=== PATIENT | female | born 1965 | race African-American/Black ===

== ENCOUNTER 2016-06-04 01:46 | Inpatient (IN) | payer MEDICAID ==
[2016-06-04] VITALS (8 sets, daily range): BP systolic 106–129; BP diastolic 56–90
[~2016-06-04] VITALS: Ht 165.1 cm; Wt 72.6 kg
[2016-06-04] MEDS ORDERED: LORazepam Inj 2mg/ml 1ml ONE (01:54)
[2016-06-04] MEDS ORDERED: LORazepam Inj 2mg/ml 1ml IM ONE (02:00)
[2016-06-04 02:31] LABS: BASOPHILS % (AUTO) 1.3 % (0.0-2.0); EOSINOPHILS % (AUTO) 1.6 % (0.0-3.0); LYMPHOCYTES % (AUTO) 35.2 % (20.0-45.0); MEAN CORPUSCULAR HEMOGLOBIN 36.1 PG (27.0-31.0); MEAN CORPUSCULAR HGB CONC 36.6 G/DL (32.0-36.0); MEAN CORPUSCULAR VOLUME 99 FL (80-99); MEAN PLATELET VOLUME 11.6 FL (6.5-10.1); MONOCYTES % (AUTO) 14.2 % (1.0-10.0); NEUTROPHILS % (AUTO) 47.7 % (45.0-75.0); PLATELET COUNT 254 K/UL (150-450); RED BLOOD COUNT 3.97 M/UL (4.20-5.40); WHITE BLOOD COUNT 13.1 K/UL (4.8-10.8)
[2016-06-04 02:45] LABS: TROPONIN I < 0.30 ng/mL (<=0.30)
[2016-06-04 02:49] LABS: ALANINE AMINOTRANSFERASE 18 U/L (3-33); ALBUMIN/GLOBULIN RATIO 0.8 (1.0-2.7); AMMONIA 154 umol/L (11-51); ANION GAP 27 (5-15); ASPARTATE AMINO TRANSFERASE 43 U/L (5-40); CALCIUM 10.2 mg/dL (8.6-10.2); CARBON DIOXIDE 23 mEQ/L (20-30); CHLORIDE 79 mEQ/L (98-107); CREATININE 4.4 mg/dL (0.5-0.9); GLOMERULAR FILTRATION RATE 12.7 mL/min (>60); HEMOLYSIS 4; POTASSIUM 3.2 mEQ/L (3.4-4.9); SODIUM 129 mEQ/L (135-145); TOTAL PROTEIN 9.7 g/dL (6.6-8.7)
[2016-06-04 02:52] LABS: REFLEX LACTIC ACID YES OR NO YES
[2016-06-04 02:59] LABS: CKMB < 1.5 ng/mL (< 3.8)
[2016-06-04] MEDS ORDERED: Haloperidol 5mg/ml Inj IM ONE (03:00)
[2016-06-04 03:09] LABS: BILIRUBIN,DIRECT 0.6 mg/dL (0.1-0.3)
[2016-06-04] MEDS ORDERED: Lactulose 20gm/30ml UDC ORAL ONE (03:15)
[2016-06-04 03:36] LABS: APPEARANCE,URINE CLEAR; KETONES,URINE NEGATIVE (NEGATIVE); LEUKOCYTE ESTERASE ,URINE 1+ (NEGATIVE); NITRITE,URINE NEGATIVE (NEGATIVE); PH,URINE 5 (4.5-8.0); PROTEIN,URINE 2+ (NEGATIVE); UROBILINOGEN,URINE NORMAL MG/DL (0.0-1.0)
[2016-06-04 03:57] LABS: RBC,URINE 0-2 /HPF (0 - 2); SQUAMOUS EPITHELIAL CELL,UR FEW /LPF (NONE/OCC); WBC,URINE 0-2 /HPF (0 - 2)
[2016-06-04] MEDS ORDERED: Lactulose 200 GM in Water Sterile For Irrig 1000ml 700 ML RECTAL ONE (04:30)
--- NOTE | 2016-06-04 04:30 | Emergency Room Report ---
History of Present Illness General Chief Complaint: Altered Level of Consciousness Source: Family Member, EMS Present Illness HPI 51-year-old female presents to ED for evaluation. Per EMS patient is altered x1 day. Screaming and agitated. Patient has history of liver disease. History of hepatic encephalopathy. Noncompliant with her medications as per . No reported fevers or chills. denies chest pain shortness of breath. No reported drug use. No other aggravating relieving factors. Denies any associated symptoms Allergies: Coded Allergies: No Known Allergies (Unverified , 06/04/16) Patient History Past Medical History: other - liver cancer Past Surgical History: none Pertinent Family History: none Social History: Denies: alcohol use, drug use, smoking Last Menstrual Period: UNK Now: No Immunizations: UTD Reviewed Nursing Documentation: PMH: Agreed, PSxH: Agreed Nursing Documentation-PMH Hx Cancer: Yes - LIVER CANCER Review of Systems All Other Systems: negative except mentioned in HPI Physical Exam Vital Signs Date Time Temp Pulse Resp B/P Pulse Ox O2 Delivery O2 Flow Rate FiO2 06/04/16 01:44 97.7 116 16 106/90 98 06/04/16 01:50 Room Air Sp02 EP Interpretation: reviewed, normal General Appearance: no apparent distress, non-toxic, other - agitated, disoriented Head: normocephalic Eyes: bilateral eye PERRL, bilateral eye normal inspection ENT: normal ENT inspection Neck: normal inspection Respiratory: chest non-tender, lungs clear, normal breath sounds, speaking full sentences Cardiovascular #1: regular rate, rhythm, no edema Gastrointestinal: normal bowel sounds, non tender, soft, non-distended, no guarding, no rebound Rectal: deferred Genitourinary: no CVA tenderness Musculoskeletal: normal inspection Neurologic: other - disoriented Psychiatric: other - disoriented Skin: normal inspection Lymphatic: normal inspection Medical Decision Making Diagnostic Impression: Primary Impression: Hepatic encephalopathy Additional Impression: ARF (acute renal failure) Qualified Codes: N17.9 - Acute kidney failure, unspecified ER Course Hospital Course 51-year-old female presents to ED with agitation and confusion. History of hepatic encephalopathy Differential diagnoses include: Pneumonia, UTI, sepsis, dehydration, SC/ unstable angina Clinical course Patient placed on stretcher. 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 Patient given his Haldol/Ativan for sedation After initial history and physical, I ordered labs, IV fluids, EKG, chest x-ray , blood cultures, UA. Labs - BUN/Cr elevated, noted leukocytosis, troponins negative, ammonia elevated , UA negative EKG - NSR, no acute proces CXR - no acute process lactulose given. Case discussed with Dr Patino and they agreed to admit patient to their service for further care and support I feel this is a highly complex case requiring extensive working including EKG/ Rhythm strip, Xray/CT/US, Blood/urine lab work, repeat exams while in ED, and administration of strong opiates/narcotics for pain control, admission to hospital or close patient follow up. Diagnosis - hepatic encephaloapthy, ARF Patient admitted to floor in serious condition Labs Test 06/04/16 02:10 06/04/16 02:30 White Blood Count 13.1 K/UL (4.8-10.8) Red Blood Count 3.97 M/UL (4.20-5.40) Hemoglobin 14.3 G/DL (12.0-16.0) Hematocrit 39.2 % (37.0-47.0) Mean Corpuscular Volume 99 FL (80-99) Mean Corpuscular Hemoglobin 36.1 PG (27.0-31.0) Mean Corpuscular Hemoglobin Concent 36.6 G/DL (32.0-36.0) Red Cell Distribution Width 11.0 % (11.6-14.8) Platelet Count 254 K/UL (150-450) Mean Platelet Volume 11.6 FL (6.5-10.1) Neutrophils (%) (Auto) 47.7 % (45.0-75.0) Lymphocytes (%) (Auto) 35.2 % (20.0-45.0) Monocytes (%) (Auto) 14.2 % (1.0-10.0) Eosinophils (%) (Auto) 1.6 % (0.0-3.0) Basophils (%) (Auto) 1.3 % (0.0-2.0) Sodium Level 129 mEQ/L (135-145) Potassium Level 3.2 mEQ/L (3.4-4.9) Chloride Level 79 mEQ/L (98-107) Carbon Dioxide Level 23 mEQ/L (20-30) Anion Gap 27 (5-15) Blood Urea Nitrogen 80 mg/dL (7-23) Creatinine 4.4 mg/dL (0.5-0.9) Estimat Glomerular Filtration Rate 12.7 mL/min (>60) Glucose Level 145 mg/dL (74-106) Lactic Acid Level 5.20 mmol/L (0.66-2.22) Calcium Level 10.2 mg/dL (8.6-10.2) Total Bilirubin 2.0 mg/dL (0.0-1.2) Direct Bilirubin 0.6 mg/dL (0.1-0.3) Aspartate Amino Transf (AST/SGOT) 43 U/L (5-40) Alanine Aminotransferase (ALT/SGPT) 18 U/L (3-33) Alkaline Phosphatase 98 U/L (35-104) Ammonia 154 umol/L (11-51) Total Creatine Kinase 32 U/L (26-140) Creatine Kinase MB < 1.5 ng/mL (< 3.8) Creatine Kinase MB Relative Index 4.6 Troponin I < 0.30 ng/mL (<=0.30) Total Protein 9.7 g/dL (6.6-8.7) Albumin 4.4 g/dL (3.5-5.2) Globulin 5.3 g/dL Albumin/Globulin Ratio 0.8 (1.0-2.7) Urine Color Yellow Urine Appearance Clear Urine pH 5 (4.5-8.0) Urine Specific [place] 1.015 (1.005-1.035) Urine Protein 2+ (NEGATIVE) Urine Glucose (UA) Negative (NEGATIVE) Urine Ketones Negative (NEGATIVE) Urine Occult Blood Negative (NEGATIVE) Urine Nitrite Negative (NEGATIVE) Urine Bilirubin Negative (NEGATIVE) Urine Urobilinogen Normal MG/DL (0.0-1.0) Urine Leukocyte Esterase 1+ (NEGATIVE) Urine RBC 0-2 /HPF (0 - 2) Urine WBC 0-2 /HPF (0 - 2) Urine Squamous Epithelial Cells Few /LPF (NONE/OCC) Urine Bacteria None /HPF (NONE) EKG Diagnostic Results Rate: normal Rhythm: NSR ST Segments: no acute changes ASA given to the pt in ED: No Rhythm Strip Diag. Results EP Interpretation: yes Rhythm: NSR, no PVC's, no ectopy Chest X-Ray Diagnostic Results EP Interpretation: Yes Findings: no consolidation, no effusion, no pneumothorax, no acute cardiopulmonary disease Number of Views: 1 Last Vital Signs Date Time Temp Pulse Resp B/P Pulse Ox O2 Delivery O2 Flow Rate FiO2 06/04/16 03:50 97.5 87 18 129/64 96 Room Air Status: improved Disposition: ADMITTED INPATIENT Condition: Serious Referrals: NOT CHOSEN RIC/,REFERRING (PCP) TG OSHEA M.D. Jun 04, 2016 04:30
[2016-06-04] MEDS ORDERED: LORazepam Inj 2mg/ml 1ml IV PRN ×3 (05:00→13:00)
[2016-06-04] MEDS ORDERED: Mylanta II UD 30ml ORAL PRN ×2 (05:00→17:00)
[2016-06-04] MEDS ORDERED: Miralax 17gm pkt ORAL PRN (05:00)
[2016-06-04] MEDS ORDERED: Morphine Sulfate 2mg/ml Inj IVP PRN ×2 (05:00→13:00)
[2016-06-04] MEDS ORDERED: Zolpidem 5mg tab ORAL PRN (05:00)
[2016-06-04] MEDS ORDERED: Lactulose 20gm/30ml UDC ONE ×2 (05:16→05:20)
[2016-06-04] MEDS ORDERED: Cefepime HCl 1 GM in D5W 55 ML IV SCH (06:00)
[2016-06-04] MEDS: Lactulose 20gm/30ml UDC ORAL SCH ×5 (06:30→21:12)
[2016-06-04] MEDS ORDERED: DOCUSATE SODIU100 M2 ORAL (07:09)
[2016-06-04] MEDS ORDERED: LACTULOSE20 GM/301 ORAL (07:18)
[2016-06-04] MEDS ORDERED: FUROSEMIDE40 MG ORAL (07:18)
[2016-06-04] MEDS ORDERED: METRONIDAZOLE500 MG ORAL (07:18)
[2016-06-04] MEDS ORDERED: Cefepime 500mg in D5W 55ml IVPB SCH (08:00)
--- NOTE | 2016-06-04 08:31 | Diagnostic Imaging Report ---
Indication: Chest pain Technique: Single portable AP view of the chest. Findings: Comparison: None. Optimal inspiration. Mild crowding of bronchovascular markings in both lung bases. Linear density right lung base. Aortic arch mildly calcified. The bones and extra pulmonary soft tissues, cardiomediastinal silhouette, pulmonary vasculature and parenchyma, and pleural surfaces are otherwise unremarkable. IMPRESSION: Pulmonary bibasal compressive changes Aortosclerosis Otherwise negative.
--- NOTE | 2016-06-04 09:04 | General Progress Note ---
Assessment/Plan Problem List: (1) Hepatic encephalopathy ICD Codes: K72.90 - Hepatic failure, unspecified without coma SNOMED: 02682903 (2) ARF (acute renal failure) ICD Codes: N17.9 - Acute kidney failure, unspecified SNOMED: 20728044 Qualifiers: Qualified Codes: N17.9 - Acute kidney failure, unspecified Assessment/Plan paracentesis xifaxan lactulose AFP 2 gm sodium diet may need albumin Subjective ROS Limited/Unobtainable: No Allergies: Coded Allergies: No Known Allergies (Unverified , 06/04/16) Objective Last 24 Hour Vital Signs Date Time Temp Pulse Resp B/P Pulse Ox O2 Delivery O2 Flow Rate FiO2 06/04/16 06:00 97.0 71 19 106/56 97 Room Air 06/04/16 05:50 98.0 85 19 122/57 97 Room Air 06/04/16 05:50 98.0 85 19 122/57 97 Room Air 06/04/16 03:50 97.5 87 18 129/64 96 Room Air 06/04/16 01:50 97.7 116 22 106/90 96 Room Air 06/04/16 01:44 97.7 116 16 106/90 98 Intake and Output 06/03/16 06/04/16 19:00 07:00 Intake Total 1000 ml Balance 1000 ml Intake IV Total 1000 ml # Voids 1 Laboratory Tests 06/04/16 02:10: White Blood Count 13.1H, Red Blood Count 3.97L, Hemoglobin 14.3, Hematocrit 39.2 , Mean Corpuscular Volume 99, Mean Corpuscular Hemoglobin 36.1H, Mean Corpuscular Hemoglobin Concent 36.6H, Red Cell Distribution Width 11.0L, Platelet Count 254, Mean Platelet Volume 11.6H, Neutrophils (%) (Auto) 47.7, Lymphocytes (%) (Auto) 35.2, Monocytes (%) (Auto) 14.2H, Eosinophils (%) (Auto) 1.6, Basophils (%) (Auto) 1.3, Sodium Level 129L, Potassium Level 3.2L, Chloride Level 79L, Carbon Dioxide Level 23, Anion Gap 27H, Blood Urea Nitrogen 80H, Creatinine 4.4H, Estimat Glomerular Filtration Rate 12.7, Glucose Level 145H, Lactic Acid Level 5.20H, Calcium Level 10.2, Total Bilirubin 2.0H, Direct Bilirubin 0.6H, Aspartate Amino Transf (AST/SGOT) 43H, Alanine Aminotransferase (ALT/SGPT) 18, Alkaline Phosphatase 98, Ammonia 154H, Total Creatine Kinase 32, Creatine Kinase MB < 1.5, Creatine Kinase MB Relative Index 4.6, Troponin I < 0.30, Total Protein 9.7H, Albumin 4.4, Globulin 5.3, Albumin/Globulin Ratio 0.8L 06/04/16 02:30: Urine Color Yellow, Urine Appearance Clear, Urine pH 5, Urine Specific [place] 1.015, Urine Protein 2+H, Urine Glucose (UA) Negative, Urine Ketones Negative, Urine Occult Blood Negative, Urine Nitrite Negative, Urine Bilirubin Negative, Urine Urobilinogen Normal, Urine Leukocyte Esterase 1+H, Urine RBC 0-2, Urine WBC 0-2, Urine Squamous Epithelial Cells Few, Urine Bacteria None 06/04/16 04:50: Lactic Acid Level 2.50H Height (Feet): 5 Height (Inches): 5.00 Weight (Pounds): 160 General Appearance: lethargic EENT: normal ENT inspection Neck: supple Cardiovascular: normal rate Respiratory/Chest: lungs clear Abdomen: soft, hypoactive bowel sounds, distended Extremities: non-tender CHANCE VERNON Jun 04, 2016 09:04
[2016-06-04] MEDS ORDERED: Sodium Chloride 550 ML IV ONE (09:15)
[2016-06-04] MEDS ORDERED: Rifaximin 550mg tab ORAL SCH (10:00)
[2016-06-04 10:55] LABS: APPEARANCE,URINE CLEAR; KETONES,URINE NEGATIVE (NEGATIVE); LEUKOCYTE ESTERASE ,URINE 1+ (NEGATIVE); NITRITE,URINE NEGATIVE (NEGATIVE); PH,URINE 7 (4.5-8.0); PROTEIN,URINE 1+ (NEGATIVE); UROBILINOGEN,URINE NORMAL MG/DL (0.0-1.0)
--- NOTE | 2016-06-04 10:59 | Cardiology Report ---
APPROVED REPORT EKG Measurement Heart [id number] Sinus tachycardia Cannot rule out Anterior infarct, age undetermined T wave abnormality, consider inferior ischemia Prolonged QT Abnormal ECG
[2016-06-04 11:10] LABS: BACTERIA,URINE FEW /HPF; SQUAMOUS EPITHELIAL CELL,UR FEW /LPF (NONE/OCC); WBC,URINE 0-2 /HPF (0 - 2)
[2016-06-04 11:12] LABS: YEAST,URINE FEW /HPF
--- NOTE | 2016-06-04 11:49 | History and Physical ---
History of Present Illness General Date patient seen: Jun 04, 2016 Reason for Hospitalization: Altered Level of Consciousness Present Illness HPI 51-year-old female wiht hx of hepatic encephalopathy, Noncompliant with her medications presents to ED with CC of altered x1 day. Screaming and agitated. No reported drug use. No other aggravating relieving factors. Denies any associated symptoms. Pt was hypotensive in the last few hours, therefore I transferred her to [facility]. Currently, she is obtunded and hypotensive. Allergies: Coded Allergies: No Known Allergies (Unverified , 06/04/16) Medication History Scheduled Docusate Sodium (Docusate Sodium), 100 MG ORAL TWICE A DAY, (Reported) Furosemide* (Lasix*), 40 MG ORAL TWICE A DAY, (Reported) Metronidazole* (Flagyl*), 500 MG ORAL THREE TIMES A DAY, (Reported) Miscellaneous Medications Lactulose (Lactulose*), 15 ML ORAL, (Reported) Patient History Healthcare decision maker Resuscitation status Full Code Advanced Directive on File Past Medical/Surgical History Past Medical/Surgical History: (1) Liver cirrhosis Review of Systems All Other Systems: negative except mentioned in HPI Physical Exam General Appearance: cachetic Lines, tubes and drains: peripheral, central line HEENT: normocephalic, anicteric Neck: non-tender, normal alignment Respiratory/Chest: chest wall non-tender, lungs clear Cardiovascular/Chest: normal peripheral pulses, normal rate Last 24 Hour Vital Signs Date Time Temp Pulse Resp B/P Pulse Ox O2 Delivery O2 Flow Rate FiO2 06/04/16 08:00 98.0 82 20 109/65 93 Room Air 06/04/16 06:00 97.0 71 19 106/56 97 Room Air 06/04/16 05:50 98.0 85 19 122/57 97 Room Air 06/04/16 05:50 98.0 85 19 122/57 97 Room Air 06/04/16 03:50 97.5 87 18 129/64 96 Room Air 06/04/16 01:50 97.7 116 22 106/90 96 Room Air 06/04/16 01:44 97.7 116 16 106/90 98 Intake and Output 06/03/16 06/04/16 19:00 07:00 Intake Total 1000 ml Balance 1000 ml IV Total 1000 ml # Voids 1 Laboratory Tests Test 06/04/16 02:10 06/04/16 02:30 06/04/16 04:50 06/04/16 10:35 White Blood Count 13.1 K/UL (4.8-10.8) H Red Blood Count 3.97 M/UL (4.20-5.40) L Hemoglobin 14.3 G/DL (12.0-16.0) Hematocrit 39.2 % (37.0-47.0) Mean Corpuscular Volume 99 FL (80-99) Mean Corpuscular Hemoglobin 36.1 PG (27.0-31.0) H Mean Corpuscular Hemoglobin Concent 36.6 G/DL (32.0-36.0) H Red Cell Distribution Width 11.0 % (11.6-14.8) L Platelet Count 254 K/UL (150-450) Mean Platelet Volume 11.6 FL (6.5-10.1) H Neutrophils (%) (Auto) 47.7 % (45.0-75.0) Lymphocytes (%) (Auto) 35.2 % (20.0-45.0) Monocytes (%) (Auto) 14.2 % (1.0-10.0) H Eosinophils (%) (Auto) 1.6 % (0.0-3.0) Basophils (%) (Auto) 1.3 % (0.0-2.0) Sodium Level 129 mEQ/L (135-145) L Potassium Level 3.2 mEQ/L (3.4-4.9) L Chloride Level 79 mEQ/L (98-107) L Carbon Dioxide Level 23 mEQ/L (20-30) Anion Gap 27 (5-15) H Blood Urea Nitrogen 80 mg/dL (7-23) H Creatinine 4.4 mg/dL (0.5-0.9) H Estimat Glomerular Filtration Rate 12.7 mL/min (>60) Glucose Level 145 mg/dL (74-106) H Lactic Acid Level 5.20 mmol/L (0.66-2.22) H 2.50 mmol/L (0.66-2.22) H Calcium Level 10.2 mg/dL (8.6-10.2) Total Bilirubin 2.0 mg/dL (0.0-1.2) H Direct Bilirubin 0.6 mg/dL (0.1-0.3) H Aspartate Amino Transf (AST/SGOT) 43 U/L (5-40) H Alanine Aminotransferase (ALT/SGPT) 18 U/L (3-33) Alkaline Phosphatase 98 U/L (35-104) Ammonia 154 umol/L (11-51) H Total Creatine Kinase 32 U/L (26-140) Creatine Kinase MB < 1.5 ng/mL (< 3.8) Creatine Kinase MB Relative Index 4.6 Troponin I < 0.30 ng/mL (<=0.30) Total Protein 9.7 g/dL (6.6-8.7) H Albumin 4.4 g/dL (3.5-5.2) Globulin 5.3 g/dL Albumin/Globulin Ratio 0.8 (1.0-2.7) L Urine Color Yellow Pale yellow Urine Appearance Clear Clear Urine pH 5 (4.5-8.0) 7 (4.5-8.0) Urine Specific [place] 1.015 (1.005-1.035) 1.005 (1.005-1.035) Urine Protein 2+ (NEGATIVE) H 1+ (NEGATIVE) H Urine Glucose (UA) Negative (NEGATIVE) Negative (NEGATIVE) Urine Ketones Negative (NEGATIVE) Negative (NEGATIVE) Urine Occult Blood Negative (NEGATIVE) 2+ (NEGATIVE) H Urine Nitrite Negative (NEGATIVE) Negative (NEGATIVE) Urine Bilirubin Negative (NEGATIVE) Negative (NEGATIVE) Urine Urobilinogen Normal MG/DL (0.0-1.0) Normal MG/DL (0.0-1.0) Urine Leukocyte Esterase 1+ (NEGATIVE) H 1+ (NEGATIVE) H Urine RBC 0-2 /HPF (0 - 2) 2-4 /HPF (0 - 2) H Urine WBC 0-2 /HPF (0 - 2) 0-2 /HPF (0 - 2) Urine Squamous Epithelial Cells Few /LPF (NONE/OCC) Few /LPF (NONE/OCC) Urine Bacteria None /HPF (NONE) Few /HPF (NONE) Urine Yeast Few /HPF (NONE) H Urine Eosinophils Pending Urine Osmolality Pending Urine Random Sodium 45 mmol/L Urine Random Chloride 31 mmol/L Urine Potassium Timed 17 mmol/L Height (Feet): 5 Height (Inches): 5.00 Weight (Pounds): 160 Medications Current Medications Medications (Trade) Dose Ordered Sig/Danielle Route PRN Reason Start Time Stop Time Status Last Admin Dose Admin Acetaminophen (Tylenol) 650 mg Q4H PRN ORAL fever 06/04/16 05:00 07/04/16 04:59 Al Hydroxide/Mg Hydroxide (Mylanta II) 30 ml Q6H PRN ORAL dyspepsia 06/04/16 05:00 07/04/16 04:59 Albumin Human (Albumisol) 50 ml @ 50 mls/hr Q1HR IV 06/04/16 11:00 06/04/16 12:59 06/04/16 10:44 Cefepime HCl/ Dextrose (Maxipime/D5W) 55 ml @ 110 mls/hr Q24H IVPB 06/04/16 08:00 06/11/16 07:59 06/04/16 09:46 Dextrose (Dextrose 50%) STAT PRN IV Hypoglycemia 06/04/16 05:00 07/04/16 04:59 Lactulose (Cephulac) 30 gm FOUR TIMES A DAY ORAL 06/04/16 13:00 07/04/16 12:59 UNV Lactulose 30 gm 30 gm EVERY 6 HOURS ORAL 06/04/16 06:00 07/04/16 05:59 Lorazepam (Ativan 2mg/ml 1ml) 0.5 mg Q4H PRN IV For Anxiety 06/04/16 05:00 06/11/16 04:59 Morphine Sulfate (Morphine Sulfate) 2 mg Q4H PRN IVP For Pain 06/04/16 05:00 06/11/16 04:59 Ondansetron HCl (Zofran) 4 mg Q6H PRN IVP Nausea & Vomiting 06/04/16 05:00 07/04/16 04:59 Polyethylene Glycol (Miralax) 17 gm HSPRN PRN ORAL Constipation 06/04/16 05:00 07/04/16 04:59 Potassium Chloride/Sodium Chloride (KCl/Sodium Chloride 1000ml bag) 1,005 ml @ 100 mls/hr Q10H3M IV 06/04/16 11:45 07/04/16 11:44 UNV Rifaximin 550 mg 550 mg EVERY 12 HOURS ORAL 06/04/16 10:00 06/11/16 09:59 Vancomycin HCl 1 ea 1 ea DAILY PRN MISC Per rx protocol 06/04/16 11:45 4/27/17 11:44 UNV Zolpidem Tartrate (Ambien) 5 mg HSPRN PRN ORAL Insomnia 06/04/16 05:00 07/04/16 04:59 Assessment/Plan Problem List: (1) Liver cirrhosis ICD Codes: K74.60 - Unspecified cirrhosis of liver SNOMED: 88329396 (2) ARF (acute renal failure) ICD Codes: N17.9 - Acute kidney failure, unspecified SNOMED: 99141213 Qualifiers: Qualified Codes: N17.9 - Acute kidney failure, unspecified (3) Hepatic encephalopathy ICD Codes: K72.90 - Hepatic failure, unspecified without coma SNOMED: 87286904 Assessment/Plan IV fluids lactulose f/u ammonia level GI evaluation renal US, nephrology evaluation urine electrolytes. JENNA JACKSON Jun 04, 2016 11:49
[2016-06-04 12:15] LABS: INR 1.2 (0.9-1.1); PROTHROMBIN TIME 12.1 SEC (9.30-11.50)
[2016-06-04 12:19] LABS: BASOPHILS % (AUTO) 1.2 % (0.0-2.0); EOSINOPHILS % (AUTO) 2.9 % (0.0-3.0); LYMPHOCYTES % (AUTO) 25.8 % (20.0-45.0); MEAN CORPUSCULAR HEMOGLOBIN 35.8 PG (27.0-31.0); MEAN CORPUSCULAR HGB CONC 35.6 G/DL (32.0-36.0); MEAN CORPUSCULAR VOLUME 100 FL (80-99); MONOCYTES % (AUTO) 15.4 % (1.0-10.0); NEUTROPHILS % (AUTO) 54.7 % (45.0-75.0); PLATELET COUNT 232 K/UL (150-450); RED BLOOD COUNT 3.89 M/UL (4.20-5.40); RED CELL DISTRIBUTION WIDTH 11.4 % (11.6-14.8); WHITE BLOOD COUNT 7.3 K/UL (4.8-10.8)
[2016-06-04 12:23] LABS: ALANINE AMINOTRANSFERASE 17 U/L (3-33); ALBUMIN/GLOBULIN RATIO 0.8 (1.0-2.7); ANION GAP 20 (5-15); ASPARTATE AMINO TRANSFERASE 46 U/L (5-40); CALCIUM 9.6 mg/dL (8.6-10.2); CARBON DIOXIDE 26 mEQ/L (20-30); CHLORIDE 90 mEQ/L (98-107); CREATININE 2.8 mg/dL (0.5-0.9); GLOMERULAR FILTRATION RATE 21.5 mL/min (>60); HEMOLYSIS 2; MAGNESIUM 2.4 mg/dL (1.7-2.5); PHOSPHORUS 3.7 mg/dL (2.5-4.8); POTASSIUM 2.8 mEQ/L (3.4-4.9); SODIUM 136 mEQ/L (135-145); TOTAL PROTEIN 8.4 g/dL (6.6-8.7); URIC ACID 16.8 mg/dL (3.0-7.5)
[2016-06-04] MEDS: D5NS 1,000 ML IV SCH (12:30)
[2016-06-04] MEDS ORDERED: D5NS 1,000 ML IV SCH (12:30)
[2016-06-04 12:40] LABS: BILIRUBIN,DIRECT 0.6 mg/dL (0.1-0.3)
--- NOTE | 2016-06-04 12:48 | Consultation ---
Consult Note Consult Note Date patient seen: Jun 04, 2016 Reason for Hospitalization: Altered Level of Consciousness 51-year-old female wiht hx of hepatic encephalopathy, Noncompliant with her medications presents to ED with CC of altered x1 day. Screaming and agitated. No reported drug use. No other aggravating relieving factors. Denies any associated symptoms. Pt was hypotensive in the last few hours, therefore I transferred her to [facility]. Currently, she is obtunded and hypotensive. Scheduled Docusate Sodium (Docusate Sodium), 100 MG ORAL TWICE A DAY, (Reported) Furosemide* (Lasix*), 40 MG ORAL TWICE A DAY, (Reported) Metronidazole* (Flagyl*), 500 MG ORAL THREE TIMES A DAY, (Reported) Miscellaneous Medications Lactulose (Lactulose*), 15 ML ORAL, (Reported) Assessment/Plan status; Renal failure acute vs chronic Liver Cirrhosis Encephalopathy Slow hydrate- monitor renal parameters and serum Amonia urine studies RUSS BELLA Jun 04, 2016 12:48
[2016-06-04] MEDS ORDERED: Potassium Chloride 10 MEQ in NS 1000ml 1,000 ML IV SCH ×4 (13:00)
[2016-06-04] MEDS ORDERED: Lactulose 20gm/30ml UDC ORAL SCH (13:00)
--- NOTE | 2016-06-04 17:34 | Diagnostic Imaging Report ---
Indications: Nasogastric tube placement Technique: Portal supine AP abdomen Findings: Comparison: None Nasogastric tube tip is closer the region of the gastric fundus. Intravascular stent projects to the right of the lower thoracic spine. T12 vertebral body demonstrates moderate compression fracture with height loss of 30-40%. Osteophytes at the margins of multiple disc spaces. Pelvis excluded from image. Visualized bowel gas pattern is unremarkable. IMPRESSION: Nasogastric tube in stomach Prior TIPS T12 vertebral body compression fracture, acuity indeterminate Degenerative spondylosis
[2016-06-04] MEDS ORDERED: Vancomycin 1250mg/D5W 275ml IVPB ONE ×2 (19:00)
[2016-06-04] MEDS: Rifaximin 550mg tab ORAL SCH (21:12)
[2016-06-05] VITALS: BP 124/90
[2016-06-05] MEDS: D5NS 1,000 ML IV SCH ×3 (01:50→17:15)
[2016-06-05 04:00] VITALS: BP 127/80
[2016-06-05] MEDS ORDERED: Miralax 17gm pkt ORAL PRN ×2 (05:00→21:00)
[2016-06-05] MEDS ORDERED: Zolpidem 5mg tab ORAL PRN ×2 (05:00→21:00)
[2016-06-05 05:36] LABS: EOSINOPHILS % (AUTO) 3.6 % (0.0-3.0); LYMPHOCYTES % (AUTO) 24.3 % (20.0-45.0); MEAN CORPUSCULAR HEMOGLOBIN 36.1 PG (27.0-31.0); MEAN CORPUSCULAR VOLUME 103 FL (80-99); MEAN PLATELET VOLUME 10.7 FL (6.5-10.1); NEUTROPHILS % (AUTO) 57.2 % (45.0-75.0); PLATELET COUNT 219 K/UL (150-450); RED BLOOD COUNT 3.99 M/UL (4.20-5.40); RED CELL DISTRIBUTION WIDTH 12.1 % (11.6-14.8); WHITE BLOOD COUNT 8.1 K/UL (4.8-10.8)
[2016-06-05 05:46] LABS: INR 1.2 (0.9-1.1); PROTHROMBIN TIME 12.3 SEC (9.30-11.50)
[2016-06-05 06:11] LABS: MAGNESIUM 2.3 mg/dL (1.7-2.5); PHOSPHORUS 2.5 mg/dL (2.5-4.8)
[2016-06-05 06:23] LABS: ALBUMIN/GLOBULIN RATIO 0.9 (1.0-2.7); CALCIUM 10.2 mg/dL (8.6-10.2); CHOLESTEROL/HDL RATIO 14.9 (3.3-4.4); CREATININE 1.7 mg/dL (0.5-0.9); GLOMERULAR FILTRATION RATE 38.2 mL/min (>60); POTASSIUM 3.1 mEQ/L (3.4-4.9); TOTAL PROTEIN 8.9 g/dL (6.6-8.7)
[2016-06-05 06:34] LABS: THYROID STIMULATING HORMONE 3.2 uIU/mL (0.300-4.500)
[2016-06-05 07:07] LABS: BILIRUBIN,DIRECT 0.5 mg/dL (0.1-0.3)
[2016-06-05 08:00] VITALS: BP 126/75
[2016-06-05] MEDS ORDERED: Cefepime HCl 500 MG in D5W 55 ML IVPB SCH (08:00)
[2016-06-05 08:11] LABS: CORTISOL LC 29.7 ug/dL (.)
[2016-06-05] MEDS: Lactulose 20gm/30ml UDC ORAL SCH ×4 (08:48→21:37)
[2016-06-05] MEDS: Rifaximin 550mg tab ORAL SCH ×2 (08:49→21:37)
[2016-06-05] MEDS ORDERED: Pantoprazole Inj IVP SCH (09:00)
[2016-06-05] MEDS ORDERED: Potassium Chloride 40 MEQ in D5W 500ml 550 ML IV ONE (11:00)
--- NOTE | 2016-06-05 11:05 | Diagnostic Imaging Report ---
Indication: Abdominal distention, elevated bilirubin, and liver enzymes, abnormal renal function test Technique: Munoz-scale and duplex images of the upper abdomen were obtained Comparison: None Findings: There is a small moderate amount of ascites fluid present. Gallbladder demonstrates sludge, no definite stones. No gallbladder wall thickening.. . Common bile duct measures 4 mm in diameter. No intrahepatic biliary ductal dilatation. Liver demonstrates coarsened echogenicity and surface micro-nodularity. No focal abnormality. There is a right portal vein the right hepatic vein and TIPS shunt noted. This appears to be patent. Reversed left portal venous flow is demonstrated. Portal vein and hepatic veins are patent.. Pancreas is unremarkable. Spleen is normal in size.. Left kidney measures 10.5 cm in length. Right kidney measures 9.3 cm length. Both kidneys demonstrate normal echogenicity. There is no hydronephrosis. No focal abnormality. . Abdominal aorta is partially obscured by bowel gas, visualized portions are non-aneurysmal. Bladder is empty, contains a Rm catheter Impression: Evidence of hepatic cirrhosis, with coarse liver echogenicity and surface micro-nodularity Evidence of patent TIPS shunt Small to moderate amount of ascites fluid, despite the presence of the above Reversed flow in the left portal vein, presumably related to portal hypertension Gallbladder sludge. Negative for gallstones or dilated ducts Note incomplete visualization of the abdominal aorta. Empty bladder with Rm catheter
--- NOTE | 2016-06-05 11:27 | Pulmonology Progress Note ---
Assessment/Plan Problems: (1) Liver cirrhosis (2) ARF (acute renal failure) (3) Hepatic encephalopathy Assessment/Plan improving waking up swallow study continue IV fluids Subjective ROS Limited/Unobtainable: No Interval Events: more awake, responds to questions Allergies: Coded Allergies: No Known Allergies (Unverified , 06/04/16) Objective Last 24 Hour Vital Signs Date Time Temp Pulse Resp B/P Pulse Ox O2 Delivery O2 Flow Rate FiO2 06/05/16 08:00 97.3 63 19 126/75 94 Room Air 06/05/16 04:00 76 06/05/16 04:00 97.1 69 18 127/80 95 Room Air 06/05/16 00:00 82 06/05/16 00:00 97.2 81 18 124/90 96 Room Air 06/04/16 20:00 74 06/04/16 20:00 97.8 77 16 116/78 94 Room Air 06/04/16 16:00 82 06/04/16 16:00 97.7 77 16 118/67 95 Room Air 06/04/16 11:30 98.1 80 20 117/61 95 Room Air 06/04/16 11:30 81 Intake and Output 06/04/16 06/05/16 19:00 07:00 Intake Total 1230 ml 1100 ml Output Total 600 ml 1250 ml Balance 630 ml -150 ml Intake Oral 0 ml 0 ml Free Water 50 ml 100 ml IV Total 1180 ml 1000 ml Output Urine Total 600 ml 1250 ml # Bowel Movements 1 4 General Appearance: WD/WN HEENT: normocephalic, atraumatic Respiratory/Chest: chest wall non-tender, lungs clear Cardiovascular: normal peripheral pulses, normal rate Abdomen: normal bowel sounds, soft, non tender Extremities: no cyanosis, no clubbing Skin: no rash Microbiology Date/Time Source Procedure Growth Status 06/04/16 02:20 Blood Blood Culture - Preliminary Resulted 06/04/16 02:10 Blood Blood Culture - Preliminary NO GROWTH AFTER 24 HOURS Resulted 06/04/16 10:35 Urine,Clean Catch Urine Culture - Preliminary Resulted Laboratory Tests 06/04/16 11:35: White Blood Count 7.3, Red Blood Count 3.89L, Hemoglobin 13.9, Hematocrit 39.1, Mean Corpuscular Volume 100H, Mean Corpuscular Hemoglobin 35.8H, Mean Corpuscular Hemoglobin Concent 35.6, Red Cell Distribution Width 11.4L, Platelet Count 232, Mean Platelet Volume 12.0H, Neutrophils (%) (Auto) 54.7, Lymphocytes (%) (Auto) 25.8, Monocytes (%) (Auto) 15.4H, Eosinophils (%) (Auto) 2.9, Basophils (%) (Auto) 1.2, Prothrombin Time 12.1H, Prothromb Time International Ratio 1.2H, Activated Partial Thromboplast Time 28, Sodium Level 136, Potassium Level 2.8L, Chloride Level 90L, Carbon Dioxide Level 26, Anion Gap 20H, Blood Urea Nitrogen 65H, Creatinine 2.8H, Estimat Glomerular Filtration Rate 21.5, Glucose Level 107H, Plasma/Serum Osmolality [Pending], Lactic Acid Level 1.90, Uric Acid 16.8H, Calcium Level 9.6, Phosphorus Level 3.7 , Magnesium Level 2.4, Total Bilirubin 2.0H, Direct Bilirubin 0.6H, Aspartate Amino Transf (AST/SGOT) 46H, Alanine Aminotransferase (ALT/SGPT) 17, Alkaline Phosphatase 88, Ammonia 124H, Total Creatine Kinase 272H, Total Protein 8.4, Albumin 3.9, Globulin 4.5, Albumin/Globulin Ratio 0.8L, Thyroid Stimulating Hormone (TSH) 3.420, Free Thyroxine 1.70, Cortisol 29.7 06/05/16 03:50: White Blood Count 8.1, Red Blood Count 3.99L, Hemoglobin 14.4, Hematocrit 41.1, Mean Corpuscular Volume 103H, Mean Corpuscular Hemoglobin 36.1H, Mean Corpuscular Hemoglobin Concent 35.0, Red Cell Distribution Width 12.1, Platelet Count 219, Mean Platelet Volume 10.7H, Neutrophils (%) (Auto) 57.2, Lymphocytes (%) (Auto) 24.3, Monocytes (%) (Auto) 13.0H, Eosinophils (%) (Auto) 3.6H, Basophils (%) (Auto) 2.0, Prothrombin Time 12.3H, Prothromb Time International Ratio 1.2H, Activated Partial Thromboplast Time 29, Sodium Level 137, Potassium Level 3.1L, Chloride Level 93L, Carbon Dioxide Level 24, Anion Gap 20H, Blood Urea Nitrogen 43H, Creatinine 1.7H, Estimat Glomerular Filtration Rate 38.2, Glucose Level 109H, Calcium Level 10.2, Phosphorus Level 2.5, Magnesium Level 2.3, Total Bilirubin 1.9H, Direct Bilirubin 0.5H, Aspartate Amino Transf (AST/ SGOT) 60H, Alanine Aminotransferase (ALT/SGPT) 21, Alkaline Phosphatase 86, Ammonia 124H, Total Protein 8.9H, Albumin 4.3, Globulin 4.6, Albumin/Globulin Ratio 0.9L, Thyroid Stimulating Hormone (TSH) 3.200, Triglycerides Level 281H, Cholesterol Level 253H, LDL Cholesterol 180H, HDL Cholesterol 17, Cholesterol/ HDL Ratio 14.9H, Alpha Fetoprotein [Pending], Hepatitis A IgM Antibody [Pending] , Hepatitis B Surface Antigen [Pending], Hepatitis B Core IgM Antibody [Pending] , Hepatitis C Antibody [Pending] 06/05/16 04:00: Urine Eosinophils None seen Current Medications Medications (Trade) Dose Ordered Sig/Danielle Route PRN Reason Start Time Stop Time Status Last Admin Dose Admin Acetaminophen (Tylenol) 650 mg Q4H PRN ORAL fever 06/04/16 13:00 07/04/16 12:59 Cefepime HCl 500 mg/Sodium Chloride 55 ml @ 110 mls/hr Q24H IVPB 06/06/16 08:00 06/12/16 07:59 Dextrose (Dextrose 50%) STAT PRN IV Hypoglycemia 06/05/16 05:00 07/05/16 04:59 Dextrose/Sodium Chloride (D5ns) 1,000 ml @ 75 mls/hr [id number] IV 06/04/16 12:30 07/04/16 12:29 06/05/16 04:20 Lactulose (Cephulac) 30 gm FOUR TIMES A DAY ORAL 06/04/16 13:00 07/04/16 12:59 06/05/16 08:48 Lorazepam (Ativan 2mg/ml 1ml) 0.5 mg Q4H PRN IV For Anxiety 06/04/16 13:00 06/11/16 12:59 06/04/16 14:57 Morphine Sulfate (Morphine Sulfate) 2 mg Q4H PRN IVP For Pain 06/04/16 13:00 06/11/16 12:59 Ondansetron HCl (Zofran) 4 mg Q6H PRN IVP Nausea & Vomiting 06/04/16 17:00 07/04/16 16:59 06/04/16 14:57 Pantoprazole 40 mg 40 mg DAILY IVP 06/05/16 09:00 07/05/16 08:59 06/05/16 08:50 Polyethylene Glycol (Miralax) 17 gm HSPRN PRN ORAL Constipation 06/05/16 05:00 07/05/16 04:59 Potassium Chloride/Dextrose (KCl/D5W 500ml) 570 ml @ 142.5 mls/ hr ONCE ONCE IV 06/05/16 11:00 06/05/16 14:59 06/05/16 11:05 Rifaximin (Xifaxan) 550 mg EVERY 12 HOURS ORAL 06/04/16 21:00 06/11/16 20:59 06/05/16 08:49 Vancomycin HCl (Vanco rx to dose) 1 ea DAILY PRN MISC Per rx protocol 06/05/16 09:00 07/05/16 08:59 Zolpidem Tartrate (Ambien) 5 mg HSPRN PRN ORAL Insomnia 06/05/16 05:00 07/05/16 04:59 JENNA JACKSON Jun 05, 2016 11:27
--- NOTE | 2016-06-05 11:38 | General Progress Note ---
Assessment/Plan Problem List: (1) Hepatic encephalopathy ICD Codes: K72.90 - Hepatic failure, unspecified without coma SNOMED: 21880453 (2) ARF (acute renal failure) ICD Codes: N17.9 - Acute kidney failure, unspecified SNOMED: 51137577 Qualifiers: Qualified Codes: N17.9 - Acute kidney failure, unspecified (3) Cirrhosis ICD Codes: K74.60 - Unspecified cirrhosis of liver SNOMED: 34658974 (4) post tips Assessment/Plan xifaxan lactulose AFP 2 gm sodium diet fu labs fu hepatitis panel Subjective ROS Limited/Unobtainable: Yes Allergies: Coded Allergies: No Known Allergies (Unverified , 06/04/16) All Systems: reviewed and negative except above Objective Last 24 Hour Vital Signs Date Time Temp Pulse Resp B/P Pulse Ox O2 Delivery O2 Flow Rate FiO2 06/05/16 08:00 97.3 63 19 126/75 94 Room Air 06/05/16 04:00 76 06/05/16 04:00 97.1 69 18 127/80 95 Room Air 06/05/16 00:00 82 06/05/16 00:00 97.2 81 18 124/90 96 Room Air 06/04/16 20:00 74 06/04/16 20:00 97.8 77 16 116/78 94 Room Air 06/04/16 16:00 82 06/04/16 16:00 97.7 77 16 118/67 95 Room Air Intake and Output 06/04/16 06/05/16 19:00 07:00 Intake Total 1230 ml 1100 ml Output Total 600 ml 1250 ml Balance 630 ml -150 ml Intake Oral 0 ml 0 ml Free Water 50 ml 100 ml IV Total 1180 ml 1000 ml Output Urine Total 600 ml 1250 ml # Bowel Movements 1 4 Laboratory Tests 06/05/16 03:50: White Blood Count 8.1, Red Blood Count 3.99L, Hemoglobin 14.4, Hematocrit 41.1, Mean Corpuscular Volume 103H, Mean Corpuscular Hemoglobin 36.1H, Mean Corpuscular Hemoglobin Concent 35.0, Red Cell Distribution Width 12.1, Platelet Count 219, Mean Platelet Volume 10.7H, Neutrophils (%) (Auto) 57.2, Lymphocytes (%) (Auto) 24.3, Monocytes (%) (Auto) 13.0H, Eosinophils (%) (Auto) 3.6H, Basophils (%) (Auto) 2.0, Prothrombin Time 12.3H, Prothromb Time International Ratio 1.2H, Activated Partial Thromboplast Time 29, Sodium Level 137, Potassium Level 3.1L, Chloride Level 93L, Carbon Dioxide Level 24, Anion Gap 20H, Blood Urea Nitrogen 43H, Creatinine 1.7H, Estimat Glomerular Filtration Rate 38.2, Glucose Level 109H, Calcium Level 10.2, Phosphorus Level 2.5, Magnesium Level 2.3, Total Bilirubin 1.9H, Direct Bilirubin 0.5H, Aspartate Amino Transf (AST/ SGOT) 60H, Alanine Aminotransferase (ALT/SGPT) 21, Alkaline Phosphatase 86, Ammonia 124H, Total Protein 8.9H, Albumin 4.3, Globulin 4.6, Albumin/Globulin Ratio 0.9L, Triglycerides Level 281H, Cholesterol Level 253H, LDL Cholesterol 180H, HDL Cholesterol 17, Cholesterol/HDL Ratio 14.9H, Alpha Fetoprotein [ Pending], Thyroid Stimulating Hormone (TSH) 3.200, Hepatitis A IgM Antibody [ Pending], Hepatitis B Surface Antigen [Pending], Hepatitis B Core IgM Antibody [ Pending], Hepatitis C Antibody [Pending] 06/05/16 04:00: Urine Eosinophils None seen Height (Feet): 5 Height (Inches): 5.00 Weight (Pounds): 160 General Appearance: no apparent distress EENT: normal ENT inspection Neck: supple Cardiovascular: normal rate Respiratory/Chest: lungs clear Abdomen: soft, hypoactive bowel sounds, distended Extremities: non-tender CHANCE VERNON Jun 05, 2016 11:38
[2016-06-05 12:00] VITALS: BP 118/74
--- NOTE | 2016-06-05 12:02 | Diagnostic Imaging Report ---
Indication: DYSPNEA Technique: One view of the chest Comparison: 06/04/2016 Findings: Interim nasogastric intubation, nasogastric tube tip coiled in gastric body. Lung and pleural spaces are clear. Heart size is normal Impression: No acute process Satisfactory nasogastric intubation
--- NOTE | 2016-06-05 13:49 | General Progress Note ---
Assessment/Plan Status: stable Status Narrative renal parameters improved Assessment/Plan Renal failure acute vs chronic Liver Cirrhosis Encephalopathy Slow hydrate- monitor renal parameters and serum Amonia urine studies Subjective ROS Limited/Unobtainable: No Constitutional: Reports: malaise, weakness Allergies: Coded Allergies: No Known Allergies (Unverified , 06/04/16) Objective Last 24 Hour Vital Signs Date Time Temp Pulse Resp B/P Pulse Ox O2 Delivery O2 Flow Rate FiO2 06/05/16 12:00 96.8 73 21 118/74 94 Room Air 06/05/16 08:00 66 06/05/16 08:00 97.3 63 19 126/75 94 Room Air 06/05/16 04:00 76 06/05/16 04:00 97.1 69 18 127/80 95 Room Air 06/05/16 00:00 82 06/05/16 00:00 97.2 81 18 124/90 96 Room Air 06/04/16 20:00 74 06/04/16 20:00 97.8 77 16 116/78 94 Room Air 06/04/16 16:00 82 06/04/16 16:00 97.7 77 16 118/67 95 Room Air Intake and Output 06/04/16 06/05/16 19:00 07:00 Intake Total 1230 ml 1100 ml Output Total 600 ml 1250 ml Balance 630 ml -150 ml Intake Oral 0 ml 0 ml Free Water 50 ml 100 ml IV Total 1180 ml 1000 ml Output Urine Total 600 ml 1250 ml # Bowel Movements 1 4 Laboratory Tests 06/05/16 03:50: White Blood Count 8.1, Red Blood Count 3.99L, Hemoglobin 14.4, Hematocrit 41.1, Mean Corpuscular Volume 103H, Mean Corpuscular Hemoglobin 36.1H, Mean Corpuscular Hemoglobin Concent 35.0, Red Cell Distribution Width 12.1, Platelet Count 219, Mean Platelet Volume 10.7H, Neutrophils (%) (Auto) 57.2, Lymphocytes (%) (Auto) 24.3, Monocytes (%) (Auto) 13.0H, Eosinophils (%) (Auto) 3.6H, Basophils (%) (Auto) 2.0, Prothrombin Time 12.3H, Prothromb Time International Ratio 1.2H, Activated Partial Thromboplast Time 29, Sodium Level 137, Potassium Level 3.1L, Chloride Level 93L, Carbon Dioxide Level 24, Anion Gap 20H, Blood Urea Nitrogen 43H, Creatinine 1.7H, Estimat Glomerular Filtration Rate 38.2, Glucose Level 109H, Calcium Level 10.2, Phosphorus Level 2.5, Magnesium Level 2.3, Total Bilirubin 1.9H, Direct Bilirubin 0.5H, Aspartate Amino Transf (AST/ SGOT) 60H, Alanine Aminotransferase (ALT/SGPT) 21, Alkaline Phosphatase 86, Ammonia 124H, Total Protein 8.9H, Albumin 4.3, Globulin 4.6, Albumin/Globulin Ratio 0.9L, Triglycerides Level 281H, Cholesterol Level 253H, LDL Cholesterol 180H, HDL Cholesterol 17, Cholesterol/HDL Ratio 14.9H, Alpha Fetoprotein [ Pending], Thyroid Stimulating Hormone (TSH) 3.200, Hepatitis A IgM Antibody [ Pending], Hepatitis B Surface Antigen [Pending], Hepatitis B Core IgM Antibody [ Pending], Hepatitis C Antibody [Pending] 06/05/16 04:00: Urine Eosinophils None seen Height (Feet): 5 Height (Inches): 5.00 Weight (Pounds): 160 General Appearance: confused Cardiovascular: normal rate Respiratory/Chest: decreased breath sounds Abdomen: soft RUSS BELLA Jun 05, 2016 13:48
[2016-06-05] MEDS ORDERED: Morphine Sulfate 2mg/ml Inj IVP PRN (15:00)
[2016-06-05] MEDS ORDERED: LORazepam Inj 2mg/ml 1ml IV PRN (15:00)
[2016-06-05 16:12] VITALS: BP 122/73
[2016-06-05 20:30] VITALS: BP 118/68
[2016-06-05] MEDS ORDERED: Tubing IV Secondary IV ONE (20:34)
[2016-06-05] MEDS ORDERED: NS 275ml ONE (20:34)
[2016-06-05] MEDS ORDERED: Vancomycin 750mg/D5W 275ml IVPB ONE ×2 (21:00)
[2016-06-06 00:22] VITALS: BP 124/77
[2016-06-06 04:00] VITALS: BP 115/64
[2016-06-06] MEDS: D5NS 1,000 ML IV SCH (05:12)
[2016-06-06 07:29] LABS: INR 1.3 (0.9-1.1)
[2016-06-06 07:30] LABS: BASOPHILS % (AUTO) 1.9 % (0.0-2.0); EOSINOPHILS % (AUTO) 6.7 % (0.0-3.0); LYMPHOCYTES % (AUTO) 36.2 % (20.0-45.0); MEAN CORPUSCULAR HEMOGLOBIN 36.3 PG (27.0-31.0); MEAN CORPUSCULAR HGB CONC 34.7 G/DL (32.0-36.0); MEAN CORPUSCULAR VOLUME 105 FL (80-99); MONOCYTES % (AUTO) 16.5 % (1.0-10.0); NEUTROPHILS % (AUTO) 38.7 % (45.0-75.0); PLATELET COUNT 201 K/UL (150-450); RED BLOOD COUNT 3.68 M/UL (4.20-5.40); RED CELL DISTRIBUTION WIDTH 12.1 % (11.6-14.8); WHITE BLOOD COUNT 6.5 K/UL (4.8-10.8)
[2016-06-06 07:46] LABS: ALANINE AMINOTRANSFERASE 19 U/L (3-33); ALBUMIN/GLOBULIN RATIO 0.8 (1.0-2.7); ANION GAP 18 (5-15); ASPARTATE AMINO TRANSFERASE 49 U/L (5-40); CALCIUM 9.3 mg/dL (8.6-10.2); CARBON DIOXIDE 21 mEQ/L (20-30); CHLORIDE 100 mEQ/L (98-107); GLOMERULAR FILTRATION RATE > 60 mL/min (>60); HEMOLYSIS 5; MAGNESIUM 1.6 mg/dL (1.7-2.5); POTASSIUM 3.4 mEQ/L (3.4-4.9); SODIUM 139 mEQ/L (135-145); TOTAL PROTEIN 7.9 g/dL (6.6-8.7)
[2016-06-06] MEDS ORDERED: Cefepime HCl 500 MG in NS 55 ML IVPB SCH ×4 (08:00)
[2016-06-06] MEDS ORDERED: Cefepime HCl 1 GM in NS 55 ML IVPB SCH (08:00)
[2016-06-06 08:01] LABS: BILIRUBIN,DIRECT 0.4 mg/dL (0.1-0.3)
[2016-06-06 08:03] VITALS: BP 111/63
[2016-06-06] MEDS: Lactulose 20gm/30ml UDC ORAL SCH ×3 (08:29→18:36)
[2016-06-06] MEDS: Rifaximin 550mg tab ORAL SCH (08:29)
[2016-06-06] MEDS ORDERED: Pantoprazole Inj IVP SCH (09:00)
[2016-06-06] MEDS ORDERED: Potassium Chloride 40 MEQ in D5W 500ml 550 ML IV ONE (11:00)
[2016-06-06 12:00] VITALS: BP 112/71
[2016-06-06] MEDS ORDERED: D5NS 1,000 ML IV SCH (12:00)
--- NOTE | 2016-06-06 12:12 | General Progress Note ---
Assessment/Plan Status: stable Assessment/Plan Renal failure acute vs chronic Liver Cirrhosis Encephalopathy Slow hydrate- increase lactulose- K Phos IV now and as needed monitor renal parameters and serum Amonia urine studies Subjective ROS Limited/Unobtainable: No Constitutional: Reports: malaise Allergies: Coded Allergies: No Known Allergies (Unverified , 06/04/16) Objective Last 24 Hour Vital Signs Date Time Temp Pulse Resp B/P Pulse Ox O2 Delivery O2 Flow Rate FiO2 06/06/16 08:03 97.6 60 20 111/63 99 Room Air 06/06/16 04:00 98.1 66 20 115/64 100 Room Air 06/06/16 00:22 98.4 60 20 124/77 100 Room Air 06/05/16 20:30 98.1 65 19 118/68 100 Room Air 06/05/16 16:12 97.2 72 18 122/73 100 Room Air Intake and Output 06/05/16 06/06/16 19:00 07:00 Intake Total 75 ml 1025.000 ml Output Total 350 ml 653 ml Balance -275 ml 372.000 ml IV Total 75 ml 1025.000 ml Output Urine Total 350 ml 650 ml Stool Total 3 ml # Bowel Movements 7 Laboratory Tests 06/05/16 18:00: Random Vancomycin Level 14.0 06/06/16 05:00: Urine Eosinophils Occasional 06/06/16 06:35: White Blood Count 6.5, Red Blood Count 3.68L, Hemoglobin 13.4, Hematocrit 38.6, Mean Corpuscular Volume 105H, Mean Corpuscular Hemoglobin 36.3H, Mean Corpuscular Hemoglobin Concent 34.7, Red Cell Distribution Width 12.1, Platelet Count 201, Mean Platelet Volume 11.0H, Neutrophils (%) (Auto) 38.7L, Lymphocytes (%) (Auto) 36.2, Monocytes (%) (Auto) 16.5H, Eosinophils (%) (Auto) 6.7H, Basophils (%) (Auto) 1.9, Prothrombin Time 13.0H, Prothromb Time International Ratio 1.3H, Activated Partial Thromboplast Time 30, Sodium Level 139, Potassium Level 3.4, Chloride Level 100, Carbon Dioxide Level 21, Anion Gap 18H, Blood Urea Nitrogen 16#, Creatinine 1.0H, Estimat Glomerular Filtration Rate > 60, Glucose Level 95, Calcium Level 9.3, Phosphorus Level 2.0L , Magnesium Level 1.6L, Total Bilirubin 1.8H, Direct Bilirubin 0.4H, Aspartate Amino Transf (AST/SGOT) 49H, Alanine Aminotransferase (ALT/SGPT) 19, Alkaline Phosphatase 75, Ammonia 152H, Total Protein 7.9, Albumin 3.7, Globulin 4.2, Albumin/Globulin Ratio 0.8L Height (Feet): 5 Height (Inches): 5.00 Weight (Pounds): 160 General Appearance: other - much more responsive Objective no other changes RUSS BELLA Jun 06, 2016 12:12
[2016-06-06] MEDS ORDERED: Potassium Phosphate 30 MM in NS 275 ML IV ONE (13:00)
[2016-06-06] MEDS ORDERED: XIFAXAN550 MG ORAL (13:03)
--- NOTE | 2016-06-06 13:10 | GI Progress Note ---
Assessment/Plan Problems: (1) Cirrhosis ICD Codes: K74.60 - Unspecified cirrhosis of liver SNOMED: 23965539 (2) post tips (3) Liver cirrhosis ICD Codes: K74.60 - Unspecified cirrhosis of liver SNOMED: 94425020 (4) Hepatic encephalopathy ICD Codes: K72.90 - Hepatic failure, unspecified without coma SNOMED: 78380502 Status: unchanged Status Narrative Discussed with Dr. Boss. Assessment/Plan ST evaluation >> passed, on soft chew elevated ammonia levels >> Xifaxan + lactulose AFP pending 2 gm sodium diet fu labs fu hepatitis panel Subjective Gastrointestinal/Abdominal: Reports: abdominal pain - generalized Objective Last 24 Hour Vital Signs Date Time Temp Pulse Resp B/P Pulse Ox O2 Delivery O2 Flow Rate FiO2 06/06/16 12:00 97.9 64 18 112/71 100 Room Air 06/06/16 08:03 97.6 60 20 111/63 99 Room Air 06/06/16 04:00 98.1 66 20 115/64 100 Room Air 06/06/16 00:22 98.4 60 20 124/77 100 Room Air 06/05/16 20:30 98.1 65 19 118/68 100 Room Air 06/05/16 16:12 97.2 72 18 122/73 100 Room Air Intake and Output 06/05/16 06/06/16 19:00 07:00 Intake Total 75 ml 1025.000 ml Output Total 350 ml 653 ml Balance -275 ml 372.000 ml IV Total 75 ml 1025.000 ml Output Urine Total 350 ml 650 ml Stool Total 3 ml # Bowel Movements 7 Laboratory Tests Test 06/05/16 18:00 06/06/16 05:00 06/06/16 06:35 Random Vancomycin Level 14.0 ug/mL Urine Eosinophils Occasional White Blood Count 6.5 K/UL (4.8-10.8) Red Blood Count 3.68 M/UL (4.20-5.40) L Hemoglobin 13.4 G/DL (12.0-16.0) Hematocrit 38.6 % (37.0-47.0) Mean Corpuscular Volume 105 FL (80-99) H Mean Corpuscular Hemoglobin 36.3 PG (27.0-31.0) H Mean Corpuscular Hemoglobin Concent 34.7 G/DL (32.0-36.0) Red Cell Distribution Width 12.1 % (11.6-14.8) Platelet Count 201 K/UL (150-450) Mean Platelet Volume 11.0 FL (6.5-10.1) H Neutrophils (%) (Auto) 38.7 % (45.0-75.0) L Lymphocytes (%) (Auto) 36.2 % (20.0-45.0) Monocytes (%) (Auto) 16.5 % (1.0-10.0) H Eosinophils (%) (Auto) 6.7 % (0.0-3.0) H Basophils (%) (Auto) 1.9 % (0.0-2.0) Prothrombin Time 13.0 SEC (9.30-11.50) H Prothromb Time International Ratio 1.3 (0.9-1.1) H Activated Partial Thromboplast Time 30 SEC (23-33) Sodium Level 139 mEQ/L (135-145) Potassium Level 3.4 mEQ/L (3.4-4.9) Chloride Level 100 mEQ/L (98-107) Carbon Dioxide Level 21 mEQ/L (20-30) Anion Gap 18 (5-15) H Blood Urea Nitrogen 16 mg/dL (7-23) # Creatinine 1.0 mg/dL (0.5-0.9) H Estimat Glomerular Filtration Rate > 60 mL/min (>60) Glucose Level 95 mg/dL (74-106) Calcium Level 9.3 mg/dL (8.6-10.2) Phosphorus Level 2.0 mg/dL (2.5-4.8) L Magnesium Level 1.6 mg/dL (1.7-2.5) L Total Bilirubin 1.8 mg/dL (0.0-1.2) H Direct Bilirubin 0.4 mg/dL (0.1-0.3) H Aspartate Amino Transf (AST/SGOT) 49 U/L (5-40) H Alanine Aminotransferase (ALT/SGPT) 19 U/L (3-33) Alkaline Phosphatase 75 U/L (35-104) Ammonia 152 umol/L (11-51) H Total Protein 7.9 g/dL (6.6-8.7) Albumin 3.7 g/dL (3.5-5.2) Globulin 4.2 g/dL Albumin/Globulin Ratio 0.8 (1.0-2.7) L Height (Feet): 5 Height (Inches): 5.00 Weight (Pounds): 160 General Appearance: no apparent distress, alert, overweight Cardiovascular: normal rate Respiratory/Chest: normal breath sounds, no respiratory distress Abdominal Exam: normal bowel sounds, non tender, soft Elvie Delacruz N.P. Jun 06, 2016 13:10
[2016-06-06 16:00] VITALS: BP 134/62
[2016-06-06] MEDS ORDERED: Phospha 250 Neutral tab ORAL SCH (18:00)
[2016-06-06] MEDS ORDERED: Vancomycin 1gm/D5W 275ml IVPB SCH ×2 (21:00)
--- NOTE | 2016-06-06 22:21 | Pulmonology Progress Note ---
Assessment/Plan Problems: (1) Liver cirrhosis (2) ARF (acute renal failure) (3) Hepatic encephalopathy Assessment/Plan improving waking up swallow study continue IV fluids Subjective ROS Limited/Unobtainable: Yes Constitutional: Reports: anorexia, fatigue Respiratory: Reports: productive cough, shortness of breath, sputum Gastrointestinal/Abdominal: Reports: bloating, nausea Allergies: Coded Allergies: No Known Allergies (Unverified , 06/04/16) Objective Last 24 Hour Vital Signs Date Time Temp Pulse Resp B/P Pulse Ox O2 Delivery O2 Flow Rate FiO2 06/06/16 16:00 98.2 20 134/62 99 Room Air 06/06/16 12:00 97.9 64 18 112/71 100 Room Air 06/06/16 08:03 97.6 60 20 111/63 99 Room Air 06/06/16 04:00 98.1 66 20 115/64 100 Room Air 06/06/16 00:22 98.4 60 20 124/77 100 Room Air Intake and Output 06/05/16 06/06/16 19:00 07:00 Intake Total 75 ml 1025.000 ml Output Total 350 ml 653 ml Balance -275 ml 372.000 ml IV Total 75 ml 1025.000 ml Output Urine Total 350 ml 650 ml Stool Total 3 ml # Bowel Movements 7 General Appearance: no acute distress HEENT: normocephalic, atraumatic, PERRL Respiratory/Chest: chest wall non-tender, decreased breath sounds, accessory muscle use Breasts: no masses Cardiovascular: normal peripheral pulses, normal rate, regular rhythm, JVD Abdomen: hypoactive bowel sounds, distended, guarding, tender, rebound tenderness Genitourinary: normal external genitalia Extremities: no cyanosis Neurologic/Psychiatric: xray tech II-XII grossly normal, responsive, disoriented Microbiology Date/Time Source Procedure Growth Status 06/04/16 02:20 Blood Blood Culture - Preliminary Gram Positive Cocci Resulted 06/04/16 02:10 Blood Blood Culture - Preliminary NO GROWTH AFTER 48 HOURS Resulted 06/04/16 10:35 Urine,Clean Catch Urine Culture - Preliminary Mixed Gram Positive Organism Resulted Laboratory Tests 06/06/16 05:00: Urine Eosinophils Occasional 06/06/16 06:35: White Blood Count 6.5, Red Blood Count 3.68L, Hemoglobin 13.4, Hematocrit 38.6, Mean Corpuscular Volume 105H, Mean Corpuscular Hemoglobin 36.3H, Mean Corpuscular Hemoglobin Concent 34.7, Red Cell Distribution Width 12.1, Platelet Count 201, Mean Platelet Volume 11.0H, Neutrophils (%) (Auto) 38.7L, Lymphocytes (%) (Auto) 36.2, Monocytes (%) (Auto) 16.5H, Eosinophils (%) (Auto) 6.7H, Basophils (%) (Auto) 1.9, Prothrombin Time 13.0H, Prothromb Time International Ratio 1.3H, Activated Partial Thromboplast Time 30, Sodium Level 139, Potassium Level 3.4, Chloride Level 100, Carbon Dioxide Level 21, Anion Gap 18H, Blood Urea Nitrogen 16#, Creatinine 1.0H, Estimat Glomerular Filtration Rate > 60, Glucose Level 95, Calcium Level 9.3, Phosphorus Level 2.0L , Magnesium Level 1.6L, Total Bilirubin 1.8H, Direct Bilirubin 0.4H, Aspartate Amino Transf (AST/SGOT) 49H, Alanine Aminotransferase (ALT/SGPT) 19, Alkaline Phosphatase 75, Ammonia 152H, Total Protein 7.9, Albumin 3.7, Globulin 4.2, Albumin/Globulin Ratio 0.8L JENNA JACKSON Jun 06, 2016 22:21
--- NOTE | 2016-06-07 14:20 | Discharge Summary ---
Discharge Summary Hospital Course Date of Admission Jun 04, 2016 at 02:40 Date of Discharge Jun 06, 2016 at 19:10 Admitting Diagnosis encephalopathy HPI Mary White is a 51 year old female who was admitted on Jun 04, 2016 at 02: 40 for Encephalopathy Hospital Course [id number] Discharge Discharge Disposition Patient was discharged to Home (01) Discharge Diagnoses: Peri Bains NP Jun 07, 2016 14:20
--- NOTE | 2016-06-08 01:58 | Discharge Summary 2 SIG ---
DATE OF ADMISSION: 06/04/2016 DATE OF DISCHARGE: 06/06/2016 CONSULTANTS: 1. Ronaldo Boss M.D. 2. Alverto Souza M.D. BRIEF HOSPITAL COURSE: The patient is a 51-year-old female, who was brought in to ED for evaluation of altered level of consciousness. The patient has been screaming and is agitated. She has a history of liver disease with history of hepatic encephalopathy and has been noncompliant with medications. On evaluation at ED, laboratories showed evidence of renal failure, creatinine 4.4 and ammonia level was 154. The patient was admitted to the medical floor, however, she was immediately transferred to [facility]. On evaluation upon transfer was noted to be hypotensive. She was given IV bolus and albumin with improvement in blood pressure. NG-tube was inserted and was given bilateral soft wrist restraints for patient safety and was given Xifaxan and lactulose. Mental status eventually improved and was able to pass bedside swallow evaluation. Recommended soft easy chew diet. Nasogastric tube was taken out. Renal parameters improved. The patient was eventually discharged home. FINAL DIAGNOSES: 1. Acute hepatic encephalopathy. 2. Liver cirrhosis. 3. Acute on chronic renal failure. Anais Patino M.D. I have been assigned to dictate discharge summary on this account and I was not involved in the patient's management. Peri Bains N.P. DR: HEBERT JOB#: [id number] CC:
== END 2016-06-06 19:10 | disposition home or self-care (01) | DRG 279 ==
LOC: EDBD 01:46 → EMR 01:55 → 3E 02:40 → EDBEDREQ 03:46 → 2W 11:26 → 4W 06-05 14:53
DX: K72.00 Acute and subacute hepatic failure without coma (principal); N17.9 Acute kidney failure, unspecified; I95.9 Hypotension, unspecified; K74.60 Unspecified cirrhosis of liver; Z78.1 Physical restraint status; N18.9 Chronic kidney disease, unspecified; Z91.19 Patient's noncompliance with other medical treatment and regimen
CPT/HCPCS: 36415; 71010; 74000; 76700; 80053; 80061; 80202; 81001; 81003; 82105; 82140; 82248; 82436; 82533; 82550; 82553; 83605; 83735; 83930; 83935; 84100; 84133; 84300; 84439; 84443; 84484; 84550; 85025; 85610; 85730; 86705; 86709; 86803; 87040; 87086; 87181; 87340; 89050; 93005; C9399; J2405; J8499